=== PATIENT | female | born 1945 ===

== ENCOUNTER 2017-01-23 10:44 | Day surgery (SDC) | payer MEDICARE ==
[2017-01-23 11:26] VITALS: BMI 37.5
[2017-01-23] MEDS ORDERED: Lactated Ringer's 500 ML IV ONE (11:31)
[2017-01-23] MEDS ORDERED: Propofol 10 mg/ml Inj (20 ML) ONE (12:02)
[2017-01-23] MEDS ORDERED: Lidocaine 2% MPF (5 ml) Inj ONE (12:02)
[2017-01-23 12:28] VITALS: TEMP 98.1
[2017-01-23 12:40] VITALS: BP 111/63; PULSE 97; RESP 16; O2SAT 99
== END 2017-01-23 12:55 | disposition home or self-care (01) ==
LOC: H.ENDO 10:44
PROVIDERS: ATTEND Internal Medicine Gastroenterology
DX: Z86.010 Personal history of colon polyps (principal); I10 Essential (primary) hypertension; E11.9 Type 2 diabetes mellitus without complications; E78.5 Hyperlipidemia, unspecified; D12.2 Benign neoplasm of ascending colon; K64.8 Other hemorrhoids; K57.30 Diverticulosis of large intestine without perforation or abscess without bleeding
CPT/HCPCS: 45385; 82948; 88305; J2704; J7120